=== PATIENT | female | born 1995 | race African-American/Black ===

== ENCOUNTER 2018-10-01 18:05 | Emergency (ER) | payer OTHER ==
[~2018-10-01] VITALS: Ht 165.1 cm; Wt 49.9 kg
[2018-10-01 18:24] VITALS: BP 128/80
[2018-10-01] MEDS ORDERED: PREN-556 PO (18:29)
[2018-10-01] MEDS ORDERED: NACL 0.9% 1,000 ML IV SCH (18:48)
[2018-10-01] MEDS ORDERED: ONDANSETRON 4 MG/2 ML VIAL IVP ONE (18:50)
--- NOTE | 2018-10-01 19:10 | NUR ---
23 Y/O F PRESENTED TO ED WITH C/O N/V X4 WEEKS, WORSENING TODAY. PT STATED SHE IS 9 WEEKS , LMP 07/25/18. PT C/O WEAKNESS, UNABLE TO KEEP FOOD DOWN. PER PT "I'VE FEELING LIKE THROWING UP AND IT HURTS." PT HAS BEEN DRYHEAVING. DENIES PAIN. ERMD NOTIFIED. WILL CONTINUE TO MONITOR.
[2018-10-01 19:11] LABS: BASOPHILS % (AUTO) 0.2 % (0.0-2.0); EOSINOPHILS % (AUTO) 0.4 % (0.0-4.0); HEMATOCRIT 34.6 % (36-48); HEMOGLOBIN 11.3 g/dL (12.0-16.0); LYMPHOCYTES # (AUTO) 1.5 K/uL (2.5-16.5); LYMPHOCYTES % (AUTO) 22.9 % (20.5-51.1); MEAN CORPUSCULAR HEMOGLOBIN 27 pg (27-31); MEAN CORPUSCULAR HGB CONC 33 g/dL (33-37); MEAN CORPUSCULAR VOLUME 83.1 fL (80-94); MONOCYTES # (AUTO) 0.4 K/uL (0.8-1.0); MONOCYTES % (AUTO) 5.5 % (1.7-9.3); NEUTROPHILS # (AUTO) 4.7 K/uL (1.8-7.7); PLATELET COUNT (AUTO) 471 K/uL (140-450); RED BLOOD CELL COUNT(AUTO) 4.16 MIL/uL (4.20-5.40); RED CELL DISTRIBUTION WIDTH 17.1 % (11.6-13.7); WHITE BLOOD COUNT (AUTO) 6.7 K/uL (4.8-10.8)
[2018-10-01 19:30] LABS: ALBUMIN 3.2 g/dL (3.4-5.0); ANION GAP 8.9 (8-16); CARBON DIOXIDE 28.9 mmol/L (21-32); CREATININE 0.7 mg/dL (0.6-1.3); POTASSIUM 3.8 mmol/L (3.5-5.1); TOTAL BILIRUBIN 0.2 mg/dL (0.0-1.0)
[2018-10-01 20:30] VITALS: BP 104/61
[2018-10-01 20:32] LABS: APPEARANCE,URINE CLEAR (CLEAR); BILIRUBIN,URINE NEGATIVE (NEGATIVE); BLOOD, URINE NEGATIVE (NEGATIVE); COLOR,URINE YELLOW (YELLOW); LEUKOCYTE ESTERASE ,URINE TRACE (NEGATIVE); NITRITE, URINE NEGATIVE (NEGATIVE); UGLUCOSE NEGATIVE (NEGATIVE)
[2018-10-01 20:37] LABS: RBC,URINE 0-5 /HPF (0-5); WBC,URINE 0-5 /HPF (0-5)
--- NOTE | 2018-10-01 20:53 | NUR ---
Patient discharged with v/s stable. Written and verbal after care instructions given and explained. Patient alert, oriented and verbalized understanding of instructions. Ambulatory with steady gait. All questions addressed prior to discharge. ID band removed. Patient advised to follow up with PMD. Rx of Diclegis given. Patient educated on indication of medication including possible reaction and side effects. Opportunity to ask questions provided and answered.
== END 2018-10-01 20:53 | disposition home or self-care (01) ==
LOC: MED 18:05
DX: O21.0 Mild hyperemesis gravidarum (principal); O26.891 Other specified pregnancy related conditions, first trimester; R19.7 Diarrhea, unspecified; Z79.899 Other long term (current) drug therapy; Z3A.09 9 weeks gestation of pregnancy
CPT/HCPCS: 36415; 80053; 81001; 85025; 96361; 96374; 99283; J2405; J7030

== ENCOUNTER 2021-05-27 17:32 | Emergency (ER) | payer OTHER ==
[~2021-05-27] VITALS: Ht 165.1 cm; Wt 60.3 kg
[~2021-05-27 17:32] MED LIST: PREN-556 PO
[2021-05-27 17:35] VITALS: BP 145/72
[2021-05-27] MEDS ORDERED: LORazepam 0.5 MG TAB PO ONE (17:50)
[2021-05-27] MEDS ORDERED: ATA25 PO (18:38)
[2021-05-27 18:43] VITALS: BP 145/72
== END 2021-05-27 18:43 | disposition home or self-care (01) ==
LOC: MED 17:32
DX: F41.9 Anxiety disorder, unspecified (principal); R07.89 Other chest pain; R53.1 Weakness; Z79.899 Other long term (current) drug therapy
CPT/HCPCS: 71045; 81002; 81025; 93005; 99283